=== PATIENT | female | born 1955 | race Two or more races ===

== ENCOUNTER 2023-03-13 11:13 | Emergency (ER) | payer OTHER ==
[~2023-03-13] VITALS: Ht 157.5 cm; Wt 72.1 kg
[2023-03-13 11:59] VITALS: TEMP 98.2
[2023-03-13] MEDS ORDERED: CYCLOBENZAPRINE 10 MG TABLET PO ONE (12:00)
[2023-03-13] MEDS ORDERED: KETOROLAC TROMETHAMINE INJ 30 MG/ML VIAL IM ONE (12:00)
[2023-03-13] MEDS ORDERED: LIDOCAINE 5% (PATCH) 1 EA PATCH TP SCH (12:00)
[2023-03-13] MEDS ORDERED: KETOROLAC TROMETHAMINE 15 MG/ML VIAL ONE (12:01)
[2023-03-13] MEDS ORDERED: LIDOCAINE 5% (PATCH) 1 EA PATCH TP ONE (12:02)
[2023-03-13] MEDS ORDERED: CYCLOBENZAPRINE 10 MG TABLET ONE (12:02)
[2023-03-13] MEDS ORDERED: CYCL5TAB PO (14:15)
[2023-03-13] MEDS ORDERED: LIDO30AD10 TP (14:15)
[2023-03-13 14:22] VITALS: BP 135/90; O2SAT 98
== END 2023-03-13 14:22 | disposition home or self-care (01) ==
LOC: ER 11:21
DX: G89.29 Other chronic pain (principal); M54.50 Low back pain, unspecified; I10 Essential (primary) hypertension; Z79.899 Other long term (current) drug therapy
CPT/HCPCS: 99283; 96372; J1885